=== PATIENT | male | born 1975 | race Caucasian/White ===

== ENCOUNTER 2017-04-04 18:47 | Emergency (ER) | payer OTHER ==
[~2017-04-04] VITALS: Ht 177.8 cm; Wt 92.9 kg
[~2017-04-04 18:47] MED LIST: LORT5TAB PO; PRED20 PO; SULF1TAB47 PO
[2017-04-04 19:00] VITALS: BP 130/92; PULSE 105; RESP 14; TEMP 98; O2SAT 95
[2017-04-04] MEDS ORDERED: LIDOCAINE HCL 1% 50 ML VIAL INFIL ONE (19:30)
--- NOTE | 2017-04-04 19:35 | PD ---
HPI Chief Complaint: Foreign Body Time Seen by Provider: 19:29 Travel History International Travel<30 days: No Contact w/Intl Traveler<30days: No Traveled to known affect area: No History of Present Illness HPI 41-year-old male presents to the emergency room for evaluation of foreign body to his left fourth finger that happened earlier today. Patient was fishing in salt water when the hook got caught on his finger. He cut the lure off and continued fishing. Patient has been applying antiseptic spray to his wound all day. He tried to remove himself with pliers but was unsuccessful. He denies paresthesias or loss of range of motion. Last tetanus was a few weeks ago. PFSH Past Medical History Medical History: Denies Significant Hx Diminished Hearing: No Tetanus Vaccination: < 5 Years Influenza Vaccination: No Past Surgical History Tonsillectomy: Yes Social History Alcohol Use: Yes (OCCAS) Tobacco Use: No Substance Use: No Allergies-Medications (Allergen,Severity, Reaction): Coded Allergies: Iodine (Verified Allergy, Severe, Anaphylaxis, 04/04/17) Reported Meds & Prescriptions Reported Meds & Active Scripts Active Doxycycline Hyclate 100 Mg Cap 100 Mg PO BID Review of Systems Except as stated in HPI: all other systems reviewed are Neg Physical Exam Narrative GENERAL: Well-nourished, well-developed male in no acute distress. Afebrile. Ambulatory. SKIN: Focused skin assessment warm/dry. There is a 1 cm fishhook protruding from the fourth finger over the distal phalanx. There is no surrounding erythema. No lymphangitis. Mild edema. Less than 2 second capillary refill distally. HEAD: Normocephalic. EYES: No scleral icterus. No injection or drainage. NECK: Supple, trachea midline. No JVD or lymphadenopathy. CARDIOVASCULAR: Regular rate and rhythm without murmurs, gallops, or rubs. RESPIRATORY: Breath sounds equal bilaterally. No accessory muscle use. PSYCHIATRIC: No delusional thought processes. No hallucinations. Data Data Last Documented VS Vital Signs Date Time Temp Pulse Resp B/P Pulse Ox O2 Delivery O2 Flow Rate FiO2 04/04/17 19:21 04/04/17 19:00 98.0 105 14 95 Orders Lidocaine 1% Inj (50 Ml) (Xylocaine 1% I (04/04/17 19:30) [facility] Medical Decision Making Medical Screen Exam Complete: Yes Emergency Medical Condition: Yes Medical Record Reviewed: Yes Differential Diagnosis Foreign body, cellulitis, abscess Narrative Course 41-year-old male presents to the emergency room for evaluation of foreign body to his left fourth finger. Patient has a fishhook in his distal phalanx. Physical exam reveals 1 cm foreign body protruding. It is tender to palpation. No surrounding erythema. No drainage. No lymphangitis. Mild edema. Area was numbed and foreign body was removed. Patient discharged with doxycycline. Told to follow up with a primary care physician or return for worsening symptoms. He understands and agrees to plan. Procedures Procedure Narrative INCISION AND DRAINAGE OF ABSCESS: The area was prepped and was sterilely draped. A subcutaneous wheal of 1% lidocaine with a total number 2 mL was used to anesthetize the area properly. A number 11 scalpel was used to make a 0.5 cm incision near the foreign body. The foreign body was removed and area was irrigated with normal saline. Sterile dressing applied. Diagnosis Primary Impression: Foreign body in soft tissue Referrals: Primary Care Physician Patient Instructions: General Instructions, Soft Tissue Foreign Body (ED) Additional Instructions: Rest and drink plenty of fluids. Take doxycycline as directed, until gone. Follow up with a primary care physician. Return to emergency room for worsening symptoms, as discussed. Med/Other Pt SpecificInfo: Prescription(s) given Scripts Doxycycline Hyclate 100 Mg [id number] Mg PO BID #28 CAP Ref 0 Prov:Carlos Freeman MD 04/04/17 Disposition: 01 DISCHARGE HOME Condition: Stable Mary Chapman Apr 04, 2017 19:35
[2017-04-04] MEDS ORDERED: DOXY100C PO (19:36)
== END 2017-04-04 19:55 | disposition home or self-care (01) ==
LOC: PHEFT 18:47
DX: S60.455A Superficial foreign body of left ring finger, initial encounter (principal); W45.8XXA Other foreign body or object entering through skin, initial encounter; Y93.89 Activity, other specified; Y92.828 Other wilderness area as the place of occurrence of the external cause; Y99.8 Other external cause status
CPT/HCPCS: 10120